=== PATIENT | female | born 1950 | race Caucasian/White ===

== ENCOUNTER → 2019-08-27 | Outpatient (CLI) | payer OTHER, MEDICARE ==
[2013-09-14 12:00] VITALS: BP 114/48
[~2019-08-27] MED LIST: CITA10TA4; INSU100I13 SQ; INSU100I17 SQ; LISI40TA; METF100010 PO; METF10007; QUIN40TA16 PO; SIMV40TA18
--- NOTE | 2019-08-27 14:33 | RAD ---
CHEST PA LATERAL History: Cough. Shortness of breath. Chest pain. Comparison: September 12, 2013. Findings: Ill-defined upper lobe opacities. Ill-defined left mid and lower lung opacities. No pleural effusion. Normal heart size. No pneumothorax. Impression: 1. Multifocal ill-defined opacities, concerning for pneumonia. Recommend follow-up to ensure resolution. Electronically signed by: Joel Minor DO (08/27/2019 2:30 PM) [id number]
== END | disposition home or self-care (01) ==
LOC: DXRAD 14:12
PROVIDERS: ATTEND Specialist
DX: J98.4 Other disorders of lung (principal)
CPT/HCPCS: 71046

== ENCOUNTER → 2019-09-18 | Outpatient (CLI) | payer OTHER, MEDICARE ==
[2013-09-14 12:00] VITALS: BP 114/48
--- NOTE | 2019-09-18 15:01 | RAD ---
AP and Lateral Views of the Chest 09/18/2019 12:00 AM Indication: Shortness of breath Comparison: Chest radiograph August 27, 2019 Findings: Previously seen infiltrates have resolved. No pneumothorax, pleural effusion, or new focal infiltrate is seen. Heart size is normal. Bony thorax is grossly intact. IMPRESSION: Resolution of previously seen infiltrates. No evidence of acute cardiopulmonary process is identified Electronically signed by: Darion Delaney MD (09/18/2019 2:58 PM) [id number]
== END ==
LOC: DXRAD 10:45
PROVIDERS: ATTEND Family Medicine
DX: J06.9 Acute upper respiratory infection, unspecified (principal)
CPT/HCPCS: 71046

== ENCOUNTER → 2021-08-23 | Outpatient (CLI) | payer MEDICARE ==
[2013-09-14 12:00] VITALS: BP 114/48
[~2021-08-23] MED LIST changes: -CITA10TA4; +CITA10TA5; -LISI40TA; +LISI40TA6
--- NOTE | 2021-08-23 12:52 | RAD ---
EXAM: DUAL ENERGY X-RAY ABSORPTIOMETRY (DEXA). HISTORY: Postmenopausal screening. FINDINGS: The lowest measured T-score is -0.2 in the right femoral neck, based on a bone mineral dens ity of 1.015 g/cm^2. Refer to the worksheets for full detail. No comparison examinations are available. IMPRESSION: 1. Normal. Bone mineral density yields a T-score of -1.0 or greater. Fracture risk is low. 2. FRAX report: Not calculated. METHODOLOGY: Dual energy x-ray absorptiometry was performed to measure bone mineral density. The foll owing analysis is based on the 2019 Official Positions of the International Society for Clinical Dens itometry: Measurements of the hips and the average of L1-L4 are preferred. When the spine and/or hip cannot be feasibly measured or interpreted, or in the setting of hyperparathyroidism, distal radial bone minera l density may be measured. The lumbar spine T-score is based on the average bone mineral density of L1-L4. In the setting of art ifact or anatomic abnormality, some lumbar levels may be excluded, and the remaining levels used for calculation. A single lumbar level is not used for diagnosis, and if only a single level is available for assessment, another anatomic site will be used to assign a diagnosis. The hip T-score is based on the bone mineral density measurement of the femoral neck or total proxima l femur of either side, whichever is lowest. Bilateral mean values are not used for diagnosis. The forearm T-score is derived from 33% of the distal radius of the nondominant forearm. Electronically signed by: Geena Eastman MD (08/23/2021 12:50 PM) [id number]
== END ==
LOC: DXRAD 11:42
PROVIDERS: ATTEND Family Medicine
DX: N95.1 Menopausal and female climacteric states (principal)
CPT/HCPCS: 77080